=== PATIENT | female | born 1945 | race Two or more races ===

== ENCOUNTER 2020-05-22 07:42 | Outpatient (CLI) | payer OTHER | END 2020-05-22 07:50 | disposition home or self-care (01) | LOC: SONOGRAMA 07:42 | PROVIDERS: ATTEND Urology | DX: Q61.01 Congenital single renal cyst (principal); N30.00 Acute cystitis without hematuria ==

== ENCOUNTER 2023-12-02 08:26 | Outpatient (CLI) | payer OTHER ==
[2023-12-02 09:12] LABS: HEMATOCRIT 37.6 % (36.0-45.00); HEMOGLOBIN 12.9 g/dL (12.0-15.00); MEAN CELL VOLUME 85.3 fL (80.00-100.00); MEAN CORPUSCULAR HEMOGLOBIN 29.2 pg (27.00-32.0); MEAN CORPUSCULAR HGB CONC 34.2 g/dl (32.0-36.0); PLATELET COUNT 253 K/uL (150-450); RED BLOOD COUNT 4.41 M/uL (4.00-6.00); RED CELL DISTRIBUTION WIDTH 14.9 % (11.5-14.5)
[2023-12-02 09:14] LABS: URINE APPEARANCE Clear; URINE BILIRRUBIN Negative (NEGATIVE); URINE BLOOD Moderate; URINE COLOR Yellow; URINE GLUCOSE Negative (NEGATIVE); URINE LEUKOCYTE Moderate; URINE NITRATE Positive; URINE PROTEIN Negative (NEGATIVE); URINE UROBILINOGEN 0.2 E.U./dl
[2023-12-02 09:19] LABS: URINE EPITHELIAL CELLS 3.7 uL (0.0-38.8); URINE RBC 24.1 uL (0.0-20.8); URINE WBC 348.2 uL (0.0-23.2)
[2023-12-02 09:24] LABS: URINE BACTERIA > 9821.5 uL (0.0-1933)
[2023-12-02 09:24] LABS: ob NEGATIVE (NEGATIVE)
[2023-12-02 10:00] LABS: ALBUMIN 3.6 gm/dL (3.4-5.0); BILIRUBIN TOTAL 0.91 mg/dL (0.3-1.2); CALCIUM 9.9 mg/dL (8.5-10.1); CHOL HDL RATIO 2.9 (0-5.0); CREATININE SERUM 0.67 mg/dL (0.55-1.02); GFR 85.57; GLOBULINA 3.2 G/DL (2.4-3.5); POTASSIUM 4.35 mEq/L (3.5-5.1); TOTAL PROTEIN 6.8 gm/dL (6.4-8.2); TSH 1.78 uIU/mL (0.358-3.74)
== END 2023-12-02 08:27 | disposition home or self-care (01) ==
LOC: LAB 08:26
PROVIDERS: ATTEND Internal Medicine
DX: D64.9 Anemia, unspecified (principal); E11.9 Type 2 diabetes mellitus without complications; E78.00 Pure hypercholesterolemia, unspecified; N39.0 Urinary tract infection, site not specified; E03.8 Other specified hypothyroidism; Z12.11 Encounter for screening for malignant neoplasm of colon

== ENCOUNTER 2023-12-02 10:31 | Outpatient (CLI) | payer OTHER | END 2023-12-02 10:33 | disposition home or self-care (01) | LOC: NUCLEAR 10:31 | PROVIDERS: ATTEND Internal Medicine | DX: M81.0 Age-related osteoporosis without current pathological fracture (principal) ==

== ENCOUNTER 2023-12-02 10:34 | Outpatient (CLI) | payer OTHER | END 2023-12-02 10:38 | disposition home or self-care (01) | LOC: SONOGRAMA 10:34 | PROVIDERS: ATTEND Internal Medicine | DX: E04.1 Nontoxic single thyroid nodule (principal) ==

== ENCOUNTER 2023-12-03 08:17 | Outpatient (CLI) | payer OTHER | END 2023-12-03 08:22 | disposition home or self-care (01) | LOC: MAMO-SONO 08:17 | PROVIDERS: ATTEND Internal Medicine | DX: N64.4 Mastodynia (principal); R92.8 Other abnormal and inconclusive findings on diagnostic imaging of breast; Z12.31 Encounter for screening mammogram for malignant neoplasm of breast ==

== ENCOUNTER 2024-11-15 13:53 | Outpatient (CLI) | payer OTHER | END 2024-11-15 13:59 | disposition home or self-care (01) | LOC: SONOGRAMA 13:53 | PROVIDERS: ATTEND Internal Medicine Endocrinology, Diabetes & Metabolism | DX: E04.2 Nontoxic multinodular goiter (principal) ==

== ENCOUNTER → 2025-03-23 | Outpatient (CLI) | payer OTHER | END | disposition home or self-care (01) | LOC: RAD 15:43 | DX: J44.1 Chronic obstructive pulmonary disease with (acute) exacerbation (principal) ==

== ENCOUNTER 2025-03-28 14:52 | Outpatient (CLI) | payer OTHER | END 2025-03-28 15:08 | disposition home or self-care (01) | LOC: TOM 14:52 | PROVIDERS: ATTEND Internal Medicine Endocrinology, Diabetes & Metabolism | DX: E21.3 Hyperparathyroidism, unspecified (principal); N20.0 Calculus of kidney ==